=== PATIENT | female | born 1970 | race Caucasian/White ===

== ENCOUNTER 2024-04-30 07:06 | Emergency (ER) | payer OTHER, SELFPAY ==
[2024-04-30 07:08] VITALS: BP 120/84
--- NOTE | 2024-04-30 07:53 | ED.MUSCINJ ---
HPI-Injury
General
Chief Complaint: Musculo-Skeletal Complaint
Source: patient
Exam Limitations: none
Time Seen by Provider: 04/30/24 07:20
Nursing documentation reviewed up to this point in time: agreed with
History of Present Illness-Injury
Initial Injury comments:
54-year-old female with history of HTN, HLD, NIDDM, since 2019 has had LS spine surgery, tummy tuck and breast lift, breast radiation due to breast cancer with lumpectomy, bilateral oophorectomy, was vacationing in [place] 2 days ago when she slipped
or tripped on an uneven pavement that was wet from rain and twisted her right ankle. She has been unable to weight-bear since.
Past History
Past History
ED Past Medical History: CAD, Cancer (Breast cancer with radiation therapy), HTN, Hypercholesterolemia, NIDDM and Other (migraines )
ED Past Surgical History: , Gynecological, Orthopedic and Other
Social History
Tobacco: Non-smoker
Alcohol: None
Drug: None
Personal:
Living: with family
Review of Systems
Review of Systems
Allergies reviewed?: Yes
All Other Systems: ROS reviewed and negative except as documented in HPI and ROS
Musculoskeletal: Reports other (Pain and swelling right ankle)
Musculoskeletal Injury Exam
Musculoskeletal Injury Exam
Right Lateral Ankle:
Pain with Movement?: Moderate
Tender to palpation?: Moderate
Soft tissue swelling?: Moderate
Strain- Sprain- Tear (Connective tissue injury)?: Moderate
Joint instability?: No
Malalignment/deformity?: No
Range of motion: Limited
Distal skin color and temperature: normal-warm & good color
Capillary Refill: normal
Normal distal neurovascular exam?: Yes
Phy Exam
Physical Exam
Physical Exam:
PHYSICAL EXAMINATION:
General: no apparent distress, not acutely ill
Neuro: alert and oriented.
Psychiatric: well kept. interactive and cooperative
Musculoskeletal: Knee and proximal tib-fib are nontender. Moves with ease
Skin: Warm, pink.
Injury Course
Orders/Labs/Results
Orders:
Orders
04/30/24 07:14
CR Ankle - Right Min 3 Views * Urgent
Comment:
Reason For Exam: injury
04/30/24 07:50
Crutches-Treatment ONCE
Ortho Boot Right- Treatment ONCE
Short or tall?: Tall
Procedures
Splinting/Sling Placement
Right Ankle:
Pre-splint extermity exam: good alignment
Type of splint: other (Orthopedic boot applied)
Splint checked by provider?: Yes
Normal distal neurovascular exam?: Yes
MDM/Problems Addressed
Differential Diagnosis Includes:
Fracture versus sprain
MDM/Problems Addressed:
54-year-old female with history of HTN, HLD, NIDDM, since 2019 has had LS spine surgery, tummy tuck and breast lift, breast radiation due to breast cancer with lumpectomy, bilateral oophorectomy, was vacationing in [place] 2 days ago when she slipped
or tripped on an uneven pavement that was wet from rain and twisted her right ankle. She has been unable to weight-bear since.
Xray right ankle initially read by this examiner: nondisplaced fx distal fibula.
Ortho boot applied, states 'it doesn't feel tight enough.' Tu wrap ordered and applied. Crutches given.
Referred to orthopedics.
Chronic conditions affecting care: DM, HTN and Cancer (History of breast cancer status post radiation therapy)
*Critical Care Note
Total Time (30-74mins, 75-104mins- exclusive of procedures): Not Applicable
ED Attending Note
-
Portions of this chart may have been created with voice recognition software.� Occasional wrong word or��sound alike� substitutions may have occurred due to the inherent limitations of voice recognition software.
Discharge Plan
Departure
Patient Disposition: Home (Routine Discharge)
Date of Disposition: 04/30/24
Time of Disposition: 07:50
Patient with high blood pressure during this ER visit?: No
Condition: Good
Discharge Problem:
Closed fracture of distal end of right fibula
Instructions: How to Use Crutches, Ankle Fracture (DC), Using Cold for Pain
Prescriptions:
No Action
zolmitriptan [Zomig] 5 MG tablet
5 mg PO PRN PRN (Reason: headache)
Patient Comments:
may repeat once, max 2 in 24 hours
losartan 50 MG tablet
100 mg PO DAILY
aspirin [Adult Aspirin Regimen] 81 MG tablet,delayed release (DR/EC)
81 mg PO DAILY
tamoxifen 10 MG tablet
20 mg PO DAILY
buspirone 10 MG tablet
7.5 mg PO BID
clotrimazole-betamethasone 1 APPLIC cream
1 applic topical BID
metformin 500 MG tablet extended release 24 hr
500 mg PO DAILY
coenzyme Q10 30 MG capsule
30 mg PO BID
rosuvastatin 40 MG tablet
40 mg PO DAILY
lubiprostone 24 MCG capsule
24 mcg PO BID
liraglutide [Victoza 2-Carlos] 0.6 MG/0.1 ML pen injector
1.8 mg SQ DAILY
(DME) pen needle, diabetic [BD Jane 2nd Gen Pen Needle] 1 EACH needle
1 ea MC DAILY
omeprazole 20 MG tablet,disintegrat, delay rel
20 mg PO BID
hydralazine 10 mg tablet
10 mg PO TID PRN (Reason: hypertension) Qty: 10 0RF
Rx Instructions:
Only take if blood pressure is greater than 180/100
Referrals:
Atilio Olson MD [Active] - Next open appointment
Danny Bhakta CRNP [Family Provider] -
Activity Restrictions/Additional Instructions:
As we discussed, wear the Ortho boot at all times when up and around until further instructed by the orthopedic doctor. Call the orthopedic doctors office today make an appointment for sometime within the next 2 weeks.
Use the crutches with gradually increasing weightbearing as, minutes.
Tylenol or ibuprofen as needed for pain.
Interventions
Interventions:
*Risk Screen - Suicide Last Done: 04/30/24 08:47
*General Assessment Last Done: 04/30/24 07:08
*Neglect/Abuse Screening Last Done: 04/30/24 08:47
ED- Fall Risk Assessment Last Done: 04/30/24 08:54
*ED COVID-19 Vaccine History Last Done: 04/30/24 07:08
*Nursing Disposition Last Done: 04/30/24 08:54
ED-Musculoskeletal Assessment Last Done: 04/30/24 08:47
Discharge Date and Time
Discharge Date/Time: 04/30/24 08:55
Print Language: ESTONIAN
== END 2024-04-30 08:55 | disposition home or self-care (01) ==
LOC: EMR 07:06
PROVIDERS: EMERGENCY PHYSICIAN Emergency Medicine; FAMILY PHYSICIAN Nurse Practitioner Gerontology
DX: S82.64XA Nondisplaced fracture of lateral malleolus of right fibula, initial encounter for closed fracture (principal); W01.0XXA Fall on same level from slipping, tripping and stumbling without subsequent striking against object, initial encounter; I10 Essential (primary) hypertension; E78.00 Pure hypercholesterolemia, unspecified; E11.9 Type 2 diabetes mellitus without complications
CPT/HCPCS: 99283; 73610